=== PATIENT | female | born 1980 | race Caucasian/White ===

== ENCOUNTER → 2018-09-28 10:58 | Outpatient (CLI) | payer OTHER, MEDICAID, SELFPAY ==
[2018-09-28 11:21] LABS: Add Manual Diff / Slide Review NO; Basophils Absolute Auto 0 /uL (0-100); Basophils Percent Auto 0.5 % (0-2); Eosinophils Absolute Auto 100 /uL (0-450); Eosinophils Percent Auto 1.5 % (2-4); Hemoglobin 14.5 g/dL (12.0-16.0); Lymphocytes Absolute Auto 1800 /uL (1100-4500); Lymphocytes Percent Auto 22.9 % (25-40); Mean Corpuscular HGB Conc 34.5 % (30-36); Mean Corpuscular Hemoglobin 30.8 PG (26-34); Mean Corpuscular Volume 89.3 fL (80-100); Monocytes Absolute Auto 400 /uL (0-900); Monocytes Percent Auto 5.1 % (3-14); Neutrophils Absolute Auto 5400 /uL (1500-7000); Platelet Count 260 X10^3/uL (150-400); Red Cell Distribution Width 12.6 % (11.6-14.8); White Blood Cell Count 7.8 X10^3/uL (4.5-11.0)
[2018-09-28 11:38] LABS: HEMOLYSIS < 15 (0-50)
[2018-09-28 11:43] LABS: Alanine Aminotransferase 31 IU/L (9-52); Albumin 4.5 g/dL (3.5-5.0); Albumin Globulin Ratio 1.6 (1.0-2.8); Alkaline Phosphatase 65 U/L (38-126); Aspartate Aminotransferase 18 IU/L (14-36); Bilirubin Total 0.6 mg/dL (0.2-1.3); Blood Urea Nitrogen 12 mg/dL (7-17); Calcium 9.7 mg/dL (8.4-10.2); Carbon Dioxide 23 mmol/L (22-32); Chloride 105 mmol/L (98-107); Estimated Glomerular Filt Rate > 60.0 mL/min (>60); Globulin 2.8 g/dL (1.7-4.1); Glucose 94 mg/dL (70-100); HEMOLYSIS < 15 (0-50); Potassium 3.9 mmol/L (3.4-5.1); Sodium 140 mmol/L (137-145); Total Protein 7.3 g/dL (6.3-8.2)
[2018-09-28 12:09] LABS: Iron 112 ug/dL (37-170)
[2018-09-28 12:14] LABS: TSH w/ Reflex to FT4 2.38 uIU/mL (0.47-4.68)
[2018-09-28 12:19] LABS: Ferritin 68.6 ng/mL (6.27-137); Percent Iron Saturation 34 % (15-50); Total Iron Binding Capacity 331 ug/dL (265-497); Transferrin 264 mg/dL (206-381)
[2018-09-28 12:49] LABS: Folate 15.4 ng/mL (2.76-20.0); Vitamin B12 359 pg/mL (239-931)
== END ==
PROVIDERS: Visit Provider Nurse Practitioner Family
DX: R42 Dizziness and giddiness (principal)
CPT/HCPCS: 36415; 80053; 82607; 82728; 82746; 83540; 83550; 84443; 85025

== ENCOUNTER → 2022-03-10 14:21 | Outpatient (CLI) | payer OTHER, SELFPAY ==
[2022-03-10 18:41] LABS: Appearance Urine UA SL CLOUDY; Bilirubin Urine UA NEGATIVE (NEGATIVE); Color Urine UA YELLOW; Glucose Urine UA NEGATIVE (Negative); Ketones Urine UA NEGATIVE (NEGATIVE); Leukocyte Esterase Urine UA NEGATIVE (NEGATIVE); Nitrite Urine UA NEGATIVE (Negative); Occult Blood Urine UA NEGATIVE (Negative); Protein Urine UA NEGATIVE (Negative); Urobilinogen Urine UA 0.2 E.U./dL (0.2); pH Urine UA 7.5 (4.5-8.0)
[2022-03-10 18:42] LABS: Amorphous Sediment Urine 2+; Bacteria Urine Many (>30); Culture Indicated Urine Specimen Cultured; RBC Urine 0-1/HPF (0-5/HPF); Squamous Epithelial Cell Urine 1-5 /HPF (0-5/HPF); WBC Urine 1-5/HPF (0-5/HPF)
== END ==
PROVIDERS: PCP Nurse Practitioner; Referring Provider Nurse Practitioner; Visit Provider Nurse Practitioner
DX: R82.90 Unspecified abnormal findings in urine (principal)
CPT/HCPCS: 81001; 87077; 87086; 87186

== ENCOUNTER → 2022-06-07 16:03 | Outpatient (CLI) | payer OTHER, SELFPAY ==
[2022-06-07 16:27] LABS: Add Manual Diff / Slide Review NO; Basophils Absolute Auto 0 /uL (0-100); Basophils Percent Auto 0.6 % (0-2); Eosinophils Absolute Auto 200 /uL (0-450); Eosinophils Percent Auto 2.2 % (2-4); Hematocrit 38.8 % (36-46); Hemoglobin 13.3 g/dL (12.0-16.0); Lymphocytes Absolute Auto 2100 /uL (1100-4500); Lymphocytes Percent Auto 31.4 % (25-40); Mean Corpuscular HGB Conc 34.2 % (30-36); Mean Corpuscular Hemoglobin 31.5 PG (26-34); Mean Corpuscular Volume 92.2 fL (80-100); Monocytes Absolute Auto 500 /uL (0-900); Monocytes Percent Auto 6.7 % (3-14); Neutrophils Absolute Auto 4000 /uL (1500-7000); Neutrophils Percent Auto 59.1 % (50-75); Platelet Count 250 X10^3/uL (150-400); Red Blood Cell Count 4.21 X10^6/uL (4.0-5.2); Red Cell Distribution Width 12.7 % (11.6-14.8); White Blood Cell Count 6.7 X10^3/uL (4.5-11.0)
[2022-06-07 16:41] LABS: Alanine Aminotransferase 24 IU/L (<35); Albumin 4.4 g/dL (3.5-5.0); Albumin Globulin Ratio 1.3 (1.0-2.8); Alkaline Phosphatase 55 U/L (38-126); Aspartate Aminotransferase 25 IU/L (14-36); BUN Creatinine Ratio 21.5 (6-22); Bilirubin Total 0.3 mg/dL (0.2-1.3); Blood Urea Nitrogen 14 mg/dL (7-17); Carbon Dioxide 29 mmol/L (22-32); Chloride 100 mmol/L (98-107); Cholesterol 204 mg/dL (140-199); Estimated Glomerular Filt Rate > 60 mL/min (>60); Globulin 3.3 g/dL (1.7-4.1); Glucose 87 mg/dL (70-100); HDL Cholesterol 60 mg/dL (40-60); HEMOLYSIS < 15 (0-50); LDL Cholesterol Calculated 120 mg/dL (<100); Sodium 138 mmol/L (137-145); Total Protein 7.7 g/dL (6.3-8.2); Triglycerides 122 mg/dL (35-150)
[2022-06-07 16:58] LABS: Free T3, Triiodothyronine Free 3.36 pg/mL (2.77-5.27); Free T4, Direct Thyroxine 0.92 ng/dL (0.78-2.19)
[2022-06-07 17:11] LABS: Thyroid Stimulating Hormone 1.42 uIU/mL (0.47-4.68)
== END ==
PROVIDERS: PCP Nurse Practitioner; Referring Provider Nurse Practitioner; Visit Provider Nurse Practitioner
DX: Z00.00 Encounter for general adult medical examination without abnormal findings (principal); B96.89 Other specified bacterial agents as the cause of diseases classified elsewhere; N76.0 Acute vaginitis; R87.619 Unspecified abnormal cytological findings in specimens from cervix uteri
CPT/HCPCS: 36415; 80053; 80061; 84439; 84443; 84481; 85025; 87070; 87077; 87147; 87186; 87205

== ENCOUNTER → 2022-06-10 10:53 | Outpatient (CLI) | payer OTHER, SELFPAY ==
--- NOTE | 2022-06-10 10:54 | DI.MG.S_ITS ---
BILATERAL DIGITAL SCREENING MAMMOGRAM 3D/2D WITH CAD: 06/10/2022 CLINICAL: Routine screening. Baseline exam. No prior exams were available for comparison. There are scattered areas of fibroglandular density in both breasts (category b / 25%-50% glandular tissue). Current study was also evaluated with a Computer Aided Detection (CAD) system. No significant masses, calcifications, or other findings are seen in either breast. IMPRESSION: NEGATIVE There is no mammographic evidence of malignancy. A 1 year screening mammogram is recommended. Based on the Tyrer Cuzick model (a risk assessment model) the patient's lifetime risk is 9.9% and her 10 year risk is 1.4%. According to the ACR, ACS, and NCCN guidelines, an annual breast MRI exam along with mammogram is recommended if the patient's lifetime risk is 20% or greater. This exam was interpreted at Station ID: [id number]. NOTE: For mammograms, a report in lay terms will be sent to the patient. Approximately 15% of breast malignancies will not be visualized mammographically. In the management of a palpable breast mass, a negative mammogram must not discourage biopsy of a clinically suspicious lesion. Electronically Signed By: Javi head/naomi:06/12/2022 02:14:09 letter sent: Normal Exam ACR BI-RADS Category 1: Negative 3341F
== END ==
PROVIDERS: PCP Nurse Practitioner; Referring Provider Nurse Practitioner; Visit Provider Nurse Practitioner
DX: Z12.31 Encounter for screening mammogram for malignant neoplasm of breast (principal)
CPT/HCPCS: 77063; 77067

== ENCOUNTER 2023-01-25 19:26 | Emergency (ER) | payer OTHER, MEDICAID, SELFPAY ==
[2023-01-25 19:36] VITALS: BP 143/63; PULSE 78; RESP 18; TEMP 37.1; O2SAT 100; BMI 42.3
--- NOTE | 2023-01-25 19:39 | DI.RAD.S_ITS ---
PROCEDURE: XR CHEST 1V INDICATIONS: chest pain TECHNIQUE: One view of the chest was acquired. COMPARISON: [facility], , CHEST 2VW, 06/16/2012, 13:12. FINDINGS: Surgical changes and devices: None. Lungs and pleura: Lungs are clear. No pleural effusions or pneumothorax. Mediastinum: Mediastinal contours appear normal. Heart size is normal. Bones and chest wall: No suspicious bony lesions. Overlying soft tissues appear unremarkable. IMPRESSION: 1. No acute cardiopulmonary disease. Dictated by: Javi Patton M.D. on 01/25/2023 at 20:55 Approved by: Javi Patton M.D. on 01/25/2023 at 20:56
[2023-01-25 20:25] LABS: Add Manual Diff / Slide Review NO; Basophils Absolute Auto 0 /uL (0-100); Basophils Percent Auto 0.5 % (0-2); Eosinophils Absolute Auto 200 /uL (0-450); Eosinophils Percent Auto 2.5 % (2-4); Hematocrit 38.3 % (36-46); Hemoglobin 13.1 g/dL (12.0-16.0); Lymphocytes Absolute Auto 2200 /uL (1100-4500); Lymphocytes Percent Auto 34.3 % (25-40); Mean Corpuscular HGB Conc 34.2 % (30-36); Mean Corpuscular Hemoglobin 31.4 PG (26-34); Mean Corpuscular Volume 91.9 fL (80-100); Monocytes Absolute Auto 400 /uL (0-900); Monocytes Percent Auto 5.9 % (3-14); Neutrophils Absolute Auto 3600 /uL (1500-7000); Neutrophils Percent Auto 56.8 % (50-75); Platelet Count 278 X10^3/uL (150-400); Red Blood Cell Count 4.17 X10^6/uL (4.0-5.2); Red Cell Distribution Width 12.6 % (11.6-14.8); White Blood Cell Count 6.3 X10^3/uL (4.5-11.0)
[2023-01-25 20:29] LABS: PTT Partial Thromboplastin Tim 30 SECONDS (26-36)
[2023-01-25 20:31] LABS: Alanine Aminotransferase 28 IU/L (<35); Albumin 4.1 g/dL (3.5-5.0); Albumin Globulin Ratio 1.5 (1.0-2.8); Alkaline Phosphatase 51 U/L (38-126); Aspartate Aminotransferase 27 IU/L (14-36); BUN Creatinine Ratio 16.1 (6-22); Bilirubin Total 0.3 mg/dL (0.2-1.3); Blood Urea Nitrogen 9 mg/dL (7-17); Calcium 8.9 mg/dL (8.4-10.2); Carbon Dioxide 25 mmol/L (22-32); Chloride 103 mmol/L (98-107); Creatine Kinase 58 U/L (30-135); Estimated Glomerular Filt Rate > 60 mL/min (>60); Globulin 2.8 g/dL (1.7-4.1); Glucose 109 mg/dL (70-100); HEMOLYSIS < 15 (0-50); Lipase 194 U/L (23-300); Magnesium 1.8 mg/dL (1.6-2.3); Potassium 3.9 mmol/L (3.4-5.1); Sodium 137 mmol/L (137-145); Total Protein 6.9 g/dL (6.3-8.2)
[2023-01-25 20:43] LABS: Troponin I < 0.012 ng/mL (0.01-0.034)
[2023-01-25 21:29] LABS: Thyroid Stimulating Hormone 1.34 uIU/mL (0.47-4.68)
[2023-01-25 22:43] VITALS: O2SAT 98
[2023-01-25 22:44] VITALS: BP 117/60; PULSE 59; O2SAT 100
[2023-01-25 23:00] VITALS: PULSE 62; RESP 12; O2SAT 100
[2023-01-25 23:01] VITALS: BP 93/54; PULSE 63; RESP 12; O2SAT 100
[2023-01-25 23:30] VITALS: BP 92/51; PULSE 60; RESP 16; O2SAT 100
--- NOTE | 2023-01-25 23:48 | ED.ARRPALP ---
HPI - Arrhythmia/Palpitations General Chief Complaint: Arrhythmia/Palpitations Stated Complaint: High HR Time Seen by Provider: 01/25/23 19:28 Source: patient Mode of arrival: Ambulatory History of Present Illness HPI narrative: 42-year-old female without significant chronic medical history presents with a chief complaint of episodes of palpitations and high heart rate off and on for the past few weeks. She states that she last had an episode earlier today but that has since resolved. She denies chest pain or shortness of breath. She states when it is happening her heart rate gets into the 120s and she feels a bit dizzy and lightheaded with some chest pressure but that all goes away when her heart rate improves. She denies any change in medications or diet, no use of illicit drugs or [id number] supplements. No change in sleep, exercise or diet. Related Data Allergies Allergy/AdvReac Type Severity Reaction Status Date / Time erythromycin base Allergy Unknown Unverified 06/07/22 15:27 [ERYTHROMYCIN BASE] Review of Systems Review of Systems Narrative: GENERAL: Denies chills, fatigue, malaise, fever, sweats. HEENT: Denies sinus pain, ear pain, sore throat, difficulty swallowing, dizziness. RESPIRATORY: Denies dyspnea, cough, wheezing, hemoptysis, sputum. CARDIOVASCULAR: See HPI GASTROINTESTINAL: Denies nausea, vomiting, abdominal pain, diarrhea, constipation, melena. : Denies dysuria, frequency, incontinence, hematuria, urinary retention. MUSCULOSKELETAL: denies weakness, joint pain, or bony pain SKIN: Denies rash, skin lesions, or other NEUROLOGIC: Denies weakness, headache, numbness, change in speech, confusion, seizures, incoordination. PSYCHIATRIC: No concerning psychosocial issues. 12 point review of systems is negative except for those stated above Patient History Medical History Abnormal Pap smear of cervix (~2016) Anxiety (~2008) Depression with anxiety Insomnia Surgical History Anesthesia History of dental surgery (~1995) Family History Mother Mental health problem Sister Mental health problem Grandmother Diabetes mellitus History of heart disease Stroke Social History Smoking Status: Never smoker second hand exposure: No alcohol intake: current (Rare, couple times a year) substance use type: marijuana (smoke, every night) Smoking Status: Never smoker alcohol intake frequency: holidays/special occasions only Substance Use Type: marijuana Exam Narrative Exam Narrative: GENERAL: [42] year old patient appears stated age. Well-developed patient, in mild distress. HEAD: Atraumatic. Normocephalic. EYES: Pupils equal round and reactive. Extraocular motions intact. No scleral icterus. No injection or drainage. ENT: Nose without bleeding, purulent drainage. Throat without erythema, tonsillar hypertrophy or exudate. Airway patent. NECK: Trachea midline. Non tender CARDIOVASCULAR: Regular rate and rhythm without murmurs, gallops, or rubs. RESPIRATORY: Clear to auscultation. Breath sounds equal bilaterally. No wheezes, rales, or rhonchi. GASTROINTESTINAL: Abdomen soft, non-tender, nondistended. EXTREMITIES: No edema or joint tenderness. BACK: Nontender without deformity or crepitance. No flank tenderness. NEURO: AOx3. SKIN: No rash or erythema of visible areas Initial Vital Signs Initial Vital Signs: Vital Signs Temperature 98.7 F 01/25/23 19:36 Pulse Rate 78 01/25/23 19:36 Respiratory Rate 18 01/25/23 19:36 Blood Pressure 143/63 H 01/25/23 19:36 Pulse Oximetry 100 01/25/23 19:36 Oxygen Delivery Method Room Air 01/25/23 19:36 Course Orders Ordered: ED Orders 01/25/23 19:39 XR chest 1V Stat EKG-12 Lead Stat 01/25/23 20:01 Complete Blood Count AUTO DIFF Stat Comprehensive Metabolic Panel Stat Lipase Stat Magnesium Stat PTT Partial Thromboplastin Bereket Stat Prothrombin Time INR Stat TSH [Thyroid Stimulating Hormone] Stat Troponin & CK Cardiac Panel Stat Discontinued Medications Aspirin (Aspirin 81 Mg Chew Tab) 324 mg PO NOW ONE Stop: 01/25/23 19:40 Last Admin: 01/25/23 23:48 Dose: Not Given Documented By: Vital Signs Vital signs: Vital Signs - 8 hr 01/25/23 19:36 01/25/23 22:43 01/25/23 22:44 Temperature 98.7 F Pulse Rate 78 59 L Respiratory Rate 18 Blood Pressure 143/63 H Pulse Oximetry 100 98 100 Oxygen Delivery Method Room Air 01/25/23 22:44 01/25/23 23:00 01/25/23 23:01 Temperature Pulse Rate 62 Respiratory Rate 12 Blood Pressure 117/60 93/54 L Pulse Oximetry 100 Oxygen Delivery Method 01/25/23 23:01 01/25/23 23:30 01/25/23 23:30 Temperature Pulse Rate 63 60 Respiratory Rate 12 16 Blood Pressure 92/51 L Pulse Oximetry 100 100 Oxygen Delivery Method 01/26/23 00:00 01/26/23 00:00 Temperature Pulse Rate 64 Respiratory Rate 14 Blood Pressure 92/59 L Pulse Oximetry 100 Oxygen Delivery Method MDM - Arrhythmia/Palpitations Lab Data 01/25/23 20:01 01/25/23 20:01 Labs: Lab Results 01/25/23 01/25/23 01/25/23 Range/Units 20:01 20:01 20:01 WBC 6.3 (4.5-11.0) X10^3/uL RBC 4.17 (4.0-5.2) X10^6/uL Hgb 13.1 (12.0-16.0) g/dL Hct 38.3 (36-46) % MCV 91.9 (80-100) fL MCH 31.4 (26-34) PG MCHC 34.2 (30-36) % RDW 12.6 (11.6-14.8) % Plt Count 278 (150-400) X10^3/uL Neut % (Auto) 56.8 (50-75) % Lymph % (Auto) 34.3 (25-40) % Mitchell % (Auto) 5.9 (3-14) % Eos % (Auto) 2.5 (2-4) % Baso % (Auto) 0.5 (0-2) % Neut # (Auto) 3600 (2775-3569) /uL Lymph # (Auto) 2200 (5620-8165) /uL Mitchell # (Auto) 400 (0-900) /uL Eos # (Auto) 200 (0-450) /uL Baso # (Auto) 0 (0-100) /uL PT 11.0 (10.1-12.7) SECONDS INR 1.0 (0.9-1.3) APTT 30 (26-36) SECONDS Sodium 137 (137-145) mmol/L Potassium 3.9 (3.4-5.1) mmol/L Chloride 103 (98-107) mmol/L Carbon Dioxide 25 (22-32) mmol/L BUN 9 (7-17) mg/dL Creatinine 0.56 (0.52-1.04) mg/dL Estimated GFR > 60 (>60) mL/min BUN/Creatinine Ratio 16.1 (6-22) Glucose 109 H (70-100) mg/dL Calcium 8.9 (8.4-10.2) mg/dL Magnesium 1.8 (1.6-2.3) mg/dL Total Bilirubin 0.3 (0.2-1.3) mg/dL AST 27 (14-36) IU/L ALT 28 (<35) IU/L Alkaline Phosphatase 51 (38-126) U/L Total Creatine Kinase 58 (30-135) U/L Troponin I < 0.012 (0.01-0.034) ng/mL Total Protein 6.9 (6.3-8.2) g/dL Albumin 4.1 (3.5-5.0) g/dL Globulin 2.8 (1.7-4.1) g/dL Albumin/Globulin Ratio 1.5 (1.0-2.8) Lipase 194 (23-300) U/L TSH (0.47-4.68) uIU/mL 01/25/23 Range/Units 20:01 WBC (4.5-11.0) X10^3/uL RBC (4.0-5.2) X10^6/uL Hgb (12.0-16.0) g/dL Hct (36-46) % MCV (80-100) fL MCH (26-34) PG MCHC (30-36) % RDW (11.6-14.8) % Plt Count (150-400) X10^3/uL Neut % (Auto) (50-75) % Lymph % (Auto) (25-40) % Mitchell % (Auto) (3-14) % Eos % (Auto) (2-4) % Baso % (Auto) (0-2) % Neut # (Auto) (9848-5945) /uL Lymph # (Auto) (3575-7867) /uL Mitchell # (Auto) (0-900) /uL Eos # (Auto) (0-450) /uL Baso # (Auto) (0-100) /uL PT (10.1-12.7) SECONDS INR (0.9-1.3) APTT (26-36) SECONDS Sodium (137-145) mmol/L Potassium (3.4-5.1) mmol/L Chloride (98-107) mmol/L Carbon Dioxide (22-32) mmol/L BUN (7-17) mg/dL Creatinine (0.52-1.04) mg/dL Estimated GFR (>60) mL/min BUN/Creatinine Ratio (6-22) Glucose (70-100) mg/dL Calcium (8.4-10.2) mg/dL Magnesium (1.6-2.3) mg/dL Total Bilirubin (0.2-1.3) mg/dL AST (14-36) IU/L ALT (<35) IU/L Alkaline Phosphatase (38-126) U/L Total Creatine Kinase (30-135) U/L Troponin I (0.01-0.034) ng/mL Total Protein (6.3-8.2) g/dL Albumin (3.5-5.0) g/dL Globulin (1.7-4.1) g/dL Albumin/Globulin Ratio (1.0-2.8) Lipase (23-300) U/L TSH 1.34 (0.47-4.68) uIU/mL MDM Narrative Medical decision making narrative: [42] year old patient presents with palpitations Multiple etiologies for patient's symptoms considered including, but not limited to: [SVT versus PACs versus electrolyte abnormality versus other] Prior Charts reviewed in our EMR Primary Historian: patient Labs reviewed and interpreted by myself: No significant abnormality requiring intervention Imaging reviewed: No acute cardiopulmonary disease Patient's history and physical exam are reassuring, she is asymptomatic for the duration and shows no tachyarrhythmias on the monitor. Electrolytes are unremarkable, no obvious contributors to her episodes of palpitations. She is appropriate for discharge, encouraged to follow closely with her primary care provider and we discussed the possibility of pursuing a Holter monitor or ZIO patch in the future. Return precautions discussed and questions answered to her apparent satisfaction Findings and discharge diagnosis discussed with patient/family followed by verbalization of understanding Return precautions discussed with patient/family whom verbalize understanding of diagnosis and plan Discharge Plan Departure Patient Disposition: Home Clinical Impression: Heart palpitations Instructions: DI for Arrhythmias Activity Restrictions/Additional Instructions: *You have been diagnosed with [ palpitations, as we discussed your history and physical exam are reassuring.] Your labs, specifically electrolytes are within normal limits as are the chemicals released by your heart if it is damage. *What to do: *Please continue to take your regular medications as directed. [ ] New medication prescriptions sent to your pharmacy: [ ] [ ] New medication written as a paper prescription [ ] No new medications given *Please follow up with your primary care provider in 2-3 days, call for an appointment. Let them know you were seen in the Emergency Department and that we ask that you be seen in follow up. We will electronically transmit a record of today's note if your PCP is in our system. It would be reasonable to talk with her about the possibility of getting set up with a traveling passenger agent as an outpatient, please consider discussing it at your upcoming appointment *Return to Emergency Department if you should have any new, worsening or concerning symptoms, such as [fever greater than 101 F, shaking chills, worsening pain, persistent vomiting or other bothersome symptoms] Referrals: Linette Quintanilla ARNP [Primary Care Provider] - Stand Alone Forms: Patient Portal/API
[2023-01-26] VITALS: BP 92/59; PULSE 64; RESP 14; O2SAT 100
== END 2023-01-26 00:09 | disposition home or self-care (01) ==
PROVIDERS: Emergency Provider Emergency Medicine; PCP Nurse Practitioner
DX: R00.2 Palpitations (principal)
CPT/HCPCS: 36415; 71045; 80053; 82550; 83690; 83735; 84443; 84484; 85025; 85610; 85730; 93005; 93010; 99284

== ENCOUNTER 2023-02-11 10:49 | Emergency (ER) | payer OTHER, MEDICAID, SELFPAY ==
[2023-02-11] VITALS (16 sets, daily range): BP systolic 95–119; BP diastolic 51–69; PULSE 63–88; RESP 12–22; TEMP 37.3; O2SAT 97–100; BMI 41.7
--- NOTE | 2023-02-11 11:03 | DI.RAD.S_ITS ---
PROCEDURE: XR CHEST 1V INDICATIONS: chest pain TECHNIQUE: One view of the chest was acquired. COMPARISON: [facility], CR, XR CHEST 1V, 01/25/2023, 20:13. FINDINGS: Surgical changes and devices: None. Lungs and pleura: Lungs are clear. No pleural effusions or pneumothorax. Mediastinum: Mediastinal contours appear normal. Heart size is normal. Bones and chest wall: No suspicious bony lesions. Overlying soft tissues appear unremarkable. IMPRESSION: No acute cardiopulmonary process. Dictated by: Alex Stover M.D. on 02/11/2023 at 11:21 Approved by: Alex Stover M.D. on 02/11/2023 at 11:21
[2023-02-11] MEDS: ASPIRIN 81 MG CHEW TAB 324 MG PO (11:09)
--- NOTE | 2023-02-11 12:04 | ED.CHESTPAIN ---
HPI - Chest Pain General Chief Complaint: Chest Pain Stated Complaint: heaviness on chest, sob Time Seen by Provider: 02/11/23 11:01 Source: patient Mode of arrival: Ambulatory History of Present Illness HPI narrative: 43-year-old female with no significant past medical history presents for chest pain, chest heaviness, shortness of breath. Patient states that she has had these symptoms intermittently for several weeks, she was evaluated in the emergency department 2 weeks ago for similar. She has a follow up appointment tomorrow and in 2 days she has a scheduled appointment for a Holter monitor. She states that the palpitations make her feel like ?after a panic attack ends?, in that her chest is heavy, she feels tired, and she feels short of breath. She can not identify what makes the symptoms come and go. Related Data Home Medications Medication Instructions Recorded Confirmed No Known Home Medications 01/31/23 01/31/23 Allergies Allergy/AdvReac Type Severity Reaction Status Date / Time erythromycin base Allergy Unknown Verified 01/31/23 09:29 [ERYTHROMYCIN BASE] Review of Systems Review of Systems Narrative: CONSTITUTIONAL- Denies: fever, chills, fatigue HEENT- Denies: sore throat, nosebleed, vision changes RESPIRATORY-reports: Shortness of breath Denies: cough, wheezing CARDIAC-reports: Chest pain, palpitations Denies: edema, orthopnea GI- Denies: abdominal pain, nausea, vomiting, constipation, diarrhea - Denies: frequency, dysuria, hematuria, flank pain MSK- Denies: extremity pain, extremity swelling, joint pain, joint swelling SKIN- Denies: rash, itching, burn, swelling NEUROLOGICAL- Denies: headache, numbness, weakness, dizziness PSYCHIATRIC- Denies: anxiety, depression, suicidal ideation, homicidal ideation Patient History Medical History Abnormal Pap smear of cervix (~2016) Anxiety (~2008) Depression with anxiety Insomnia Surgical History Anesthesia History of dental surgery (~1995) Family History Mother Mental health problem Sister Mental health problem Grandmother Diabetes mellitus History of heart disease Stroke Social History Smoking Status: Never smoker second hand exposure: No alcohol intake: current (Rare, couple times a year) substance use type: marijuana (smoke, every night) Smoking Status: Never smoker alcohol intake frequency: holidays/special occasions only Substance Use Type: marijuana Exam Initial Vital Signs Initial Vital Signs: Vital Signs Temperature 99.2 F 02/11/23 10:51 Pulse Rate 88 02/11/23 10:51 Respiratory Rate 16 02/11/23 10:51 Blood Pressure 107/69 02/11/23 10:51 Pulse Oximetry 99 02/11/23 10:51 Oxygen Delivery Method Room Air 02/11/23 10:51 Const: Awake, alert, no acute distress, nontoxic appearing Eyes: PERRL, EOMI, conjunctiva normal ENT: Atraumatic, dentition normal, mucous membranes moist Cardiac: regular rate, regular rhythm RESP: unlabored, clear bilaterally, no wheezing GI: Atraumatic, soft, nontender, nondistended, no rebound, no guarding MSK: Atraumatic, full range of motion, pulses equal Skin: Warm, Dry, intact, no rashes Neuro: AO x3, CN II-XII grossly intact, moves all extremities Psych: affect normal, mood normal, not suicidal, not homicidal Course Course Course Narrative: Well-appearing patient with recurrent intermittent chest pains. Vital signs are normal. Heart score 1 based on obesity. EKG normal sinus rhythm without ischemic findings. We will order cardiac workup and D-dimer, although PE felt to be unlikely given chronicity of symptoms Orders Ordered: ED Orders 02/11/23 11:00 Complete Blood Count AUTO DIFF Stat Comprehensive Metabolic Panel Stat D Dimer Stat Lipase Stat Magnesium Stat PTT Partial Thromboplastin Bereket Stat Prothrombin Time INR Stat Troponin & CK Cardiac Panel Stat 02/11/23 11:03 XR chest 1V Stat EKG-12 Lead Stat Discontinued Medications Aspirin (Aspirin 81 Mg Chew Tab) 324 mg PO NOW ONE Stop: 02/11/23 11:04 Last Admin: 02/11/23 11:09 Dose: 324 mg Documented By: WILNER Reevaluation(s) Reevaluation #1: Laboratory work is unremarkable. D-dimer negative. Chest x-ray reviewed, unremarkable. Patient counseled if all labs and imaging findings at bedside. She is reassured that her workup today is negative and will follow up tomorrow with her doctor as scheduled. Vital Signs Vital signs: Vital Signs - 8 hr 02/11/23 10:51 02/11/23 10:54 02/11/23 10:55 Temperature 99.2 F Pulse Rate 88 Respiratory Rate 16 Blood Pressure 107/69 107/69 Pulse Oximetry 99 97 Oxygen Delivery Method Room Air 02/11/23 10:55 02/11/23 11:00 02/11/23 11:00 Temperature Pulse Rate 83 73 Respiratory Rate Blood Pressure 119/62 Pulse Oximetry 98 98 Oxygen Delivery Method 02/11/23 11:30 02/11/23 11:31 02/11/23 11:31 Temperature Pulse Rate 71 72 Respiratory Rate 15 14 Blood Pressure 116/60 95/51 L Pulse Oximetry 100 100 Oxygen Delivery Method 02/11/23 12:00 02/11/23 12:00 02/11/23 12:02 Temperature Pulse Rate 65 67 Respiratory Rate 12 16 Blood Pressure 95/54 L Pulse Oximetry 100 100 Oxygen Delivery Method 02/11/23 12:04 02/11/23 12:04 02/11/23 12:10 Temperature Pulse Rate 63 66 Respiratory Rate 16 20 Blood Pressure 106/56 L Pulse Oximetry 100 100 Oxygen Delivery Method 02/11/23 12:10 02/11/23 12:30 02/11/23 12:30 Temperature Pulse Rate 64 Respiratory Rate 22 Blood Pressure 100/59 L 100/59 L Pulse Oximetry 100 Oxygen Delivery Method 02/11/23 12:35 02/11/23 12:35 02/11/23 12:57 Temperature Pulse Rate 66 66 Respiratory Rate 19 15 Blood Pressure 100/58 L Pulse Oximetry 100 100 Oxygen Delivery Method 02/11/23 12:57 02/11/23 13:00 02/11/23 13:01 Temperature Pulse Rate 70 69 Respiratory Rate 16 15 Blood Pressure 108/61 Pulse Oximetry 100 100 Oxygen Delivery Method 02/11/23 13:01 02/11/23 13:30 02/11/23 13:30 Temperature Pulse Rate 66 Respiratory Rate 15 Blood Pressure 109/54 L 105/57 L Pulse Oximetry 100 Oxygen Delivery Method MDM - Chest Pain Differential Diagnosis Differential diagnosis: Likely fracture of rib, pneumothorax and atypical chest pain Lab Data 02/11/23 11:00 02/11/23 11:00 Labs: Lab Results 02/11/23 02/11/23 02/11/23 Range/Units 11:00 11:00 11:00 WBC 7.1 (4.5-11.0) X10^3/uL RBC 4.27 (4.0-5.2) X10^6/uL Hgb 13.4 (12.0-16.0) g/dL Hct 38.7 (36-46) % MCV 90.5 (80-100) fL MCH 31.3 (26-34) PG MCHC 34.6 (30-36) % RDW 12.0 (11.6-14.8) % Plt Count 254 (150-400) X10^3/uL Neut % (Auto) 62.1 (50-75) % Lymph % (Auto) 27.6 (25-40) % [place]ois % (Auto) 7.3 (3-14) % Eos % (Auto) 2.5 (2-4) % Baso % (Auto) 0.5 (0-2) % Neut # (Auto) TNP Lymph # (Auto) TNP [place]ois # (Auto) TNP Eos # (Auto) TNP Baso # (Auto) TNP PT 11.6 (10.1-12.7) SECONDS INR 1.0 (0.9-1.3) APTT 31 (26-36) SECONDS D-Dimer < 250 (<500) ng/ml Sodium 137 (137-145) mmol/L Potassium 4.3 (3.4-5.1) mmol/L Chloride 104 (98-107) mmol/L Carbon Dioxide 27 (22-32) mmol/L BUN 8 (7-17) mg/dL Creatinine 0.6 (0.52-1.04) mg/dL Estimated GFR > 60 (>60) mL/min BUN/Creatinine Ratio 13.3 (6-22) Glucose 92 (70-100) mg/dL Calcium 9.3 (8.4-10.2) mg/dL Magnesium 2.0 (1.6-2.3) mg/dL Total Bilirubin 0.6 (0.2-1.3) mg/dL AST 21 (14-36) IU/L ALT 20 (<35) IU/L Alkaline Phosphatase 51 (38-126) U/L Total Creatine Kinase 37 (30-135) U/L Troponin I < 0.012 (0.01-0.034) ng/mL Total Protein 6.9 (6.3-8.2) g/dL Albumin 4.0 (3.5-5.0) g/dL Globulin 2.9 (1.7-4.1) g/dL Albumin/Globulin Ratio 1.4 (1.0-2.8) Lipase 148 (23-300) U/L ECG Data Interpretation: Normal sinus rhythm rate 74 beats per minute, normal MS interval, no T-wave inversions, no STEMI Discharge Plan Departure Patient Disposition: Home Clinical Impression: Chest pain Instructions: DI for Atypical Chest Pain Prescriptions: No Action No Known Home Medications Referrals: Linette Quintanilla ARNP [Primary Care Provider] - Stand Alone Forms: Patient Portal/API
[2023-02-11 12:27] LABS: Add Manual Diff / Slide Review NO
[2023-02-11 12:34] LABS: HEMOLYSIS < 15 (0-50)
[2023-02-11 12:40] LABS: White Blood Cell Count 7.1 X10^3/uL (4.5-11.0)
[2023-02-11 12:41] LABS: Hematocrit 38.7 % (36-46); Hemoglobin 13.4 g/dL (12.0-16.0); Mean Corpuscular Hemoglobin 31.3 PG (26-34); Mean Corpuscular Volume 90.5 fL (80-100); Red Blood Cell Count 4.27 X10^6/uL (4.0-5.2)
[2023-02-11 12:42] LABS: Lymphocytes Percent Auto 27.6 % (25-40); Mean Corpuscular HGB Conc 34.6 % (30-36); Neutrophils Percent Auto 62.1 % (50-75); Platelet Count 254 X10^3/uL (150-400)
[2023-02-11 12:43] LABS: Basophils Percent Auto 0.5 % (0-2); Eosinophils Percent Auto 2.5 % (2-4); Monocytes Percent Auto 7.3 % (3-14)
[2023-02-11 12:45] LABS: PTT Partial Thromboplastin Tim 31 SECONDS (26-36); Prothrombin Time 11.6 SECONDS (10.1-12.7)
[2023-02-11 12:46] LABS: D Dimer < 250 ng/ml (<500)
[2023-02-11 12:47] LABS: Troponin I < 0.012 ng/mL (0.01-0.034)
[2023-02-11 12:49] LABS: Chloride 104 mmol/L (98-107); Creatine Kinase 37 U/L (30-135); Potassium 4.3 mmol/L (3.4-5.1); Sodium 137 mmol/L (137-145)
[2023-02-11 12:50] LABS: BUN Creatinine Ratio 13.3 (6-22); Blood Urea Nitrogen 8 mg/dL (7-17); Carbon Dioxide 27 mmol/L (22-32); Estimated Glomerular Filt Rate > 60 mL/min (>60)
[2023-02-11 12:51] LABS: Alanine Aminotransferase 20 IU/L (<35); Aspartate Aminotransferase 21 IU/L (14-36); Bilirubin Total 0.6 mg/dL (0.2-1.3); Calcium 9.3 mg/dL (8.4-10.2); Glucose 92 mg/dL (70-100)
[2023-02-11 12:52] LABS: Albumin Globulin Ratio 1.4 (1.0-2.8); Alkaline Phosphatase 51 U/L (38-126); Globulin 2.9 g/dL (1.7-4.1); Lipase 148 U/L (23-300); Total Protein 6.9 g/dL (6.3-8.2)
== END 2023-02-11 13:43 | disposition home or self-care (01) ==
PROVIDERS: Emergency Provider Emergency Medicine; PCP Nurse Practitioner
DX: R07.9 Chest pain, unspecified (principal)
CPT/HCPCS: 36415; 71045; 80053; 82550; 83690; 83735; 84484; 85025; 85379; 85610; 85730; 93005; 99284

== ENCOUNTER → 2023-02-14 15:11 | Outpatient (CLI) | payer OTHER, MEDICAID, SELFPAY | PROVIDERS: PCP Nurse Practitioner; Referring Provider Nurse Practitioner; Visit Provider Nurse Practitioner | DX: R00.2 Palpitations (principal); R55 Syncope and collapse | CPT/HCPCS: 93246 ==

== ENCOUNTER 2023-07-26 15:37 | Emergency (ER) | payer OTHER, MEDICAID, SELFPAY ==
[2023-07-26 15:45] VITALS: BP 167/74; PULSE 85; RESP 17; TEMP 37.1; O2SAT 100; BMI 41.9
--- NOTE | 2023-07-26 15:49 | DI.US.S_ITS ---
PROCEDURE: US PELVIC COMPLETE INDICATIONS: BLEEDING TECHNIQUE: Real-time scanning was performed of the pelvic organs, with image documentation. Additional endovaginal scanning was necessary due to incomplete visualization of the adnexal and endometrial structures by transabdominal scanning. COMPARISON: None. FINDINGS: Uterus: Uterus is anteverted and normal in size at 9.0 x 4.8 x 6.7 cm. The myometrium is homogeneous. The endometrium measures 11 mm combined thickness. No intrauterine gestation sac visualized. Ovaries: The right ovary measures 1.6 x 4.2 x 1.6 cm, with a calculated ovarian volume of 5 cc. The left ovary measures 2.1 x 3.0 x 1.8 cm, with a calculated ovarian volume of 6 cc. There is a thick walled cystic lesion which appears within the left ovary measuring 1.1 x 1.1 x 0.9 centimeters. Other: No pathologic free abdominal or pelvic fluid. IMPRESSION: No intrauterine gestation sac. Thick walled cystic lesion which appears within the left ovary measuring 1.1 x 1.1 x 0.9 centimeters. Findings favor a degenerating corpus luteum over ovarian ectopic . Short-term follow-up and trending beta HCGs is recommended. We strive to produce accurate, complete, and clear reports of imaging services. To assist us in improving patient care, this report was composed using standard report templates and voice recognition software. Therefore, it may contain abnormal punctuation, insertions and/or omissions. Occasional wrong-word or sound-alike substitutions may occur. Though we review the report and make efforts to correct it, we do recommend that the report be read carefully in proper context to recognize any text inaccuracies. Dictated by: Lj Sandoval M.D. on 07/26/2023 at 16:43 Approved by: Lj Sandoval M.D. on 07/26/2023 at 16:46
--- NOTE | 2023-07-26 16:12 | ED.PREGNANCY ---
HPI - <Hyun Jacobson PA-C - Last Filed: 07/26/23 18:54> General Chief complaint: Vaginal Bleeding Stated complaint: 4 WKS PRGNT, BLEEDING AND PX Time Seen by Provider: 07/26/23 16:12 Source: patient Mode of arrival: Ambulatory History of Present Illness HPI Narrative: Patient is a 43-year-old who is approximately 5 weeks per positive home test last week, who presents for evaluation after 24 hours of intermittent vaginal bleeding, abdominal cramping and pain. The pain at its worst was 2/10. The vaginal bleeding started last night, stopped overnight and started again today. She had 1 episode of diarrhea yesterday. Denies urinary symptoms, fever, chills. Has not yet had any labs or ultrasounds. Saw PCP Linette Quintanilla today to discuss options for this . Related Data Allergies Allergy/AdvReac Type Severity Reaction Status Date / Time erythromycin base AdvReac Unknown Vomiting Verified 07/26/23 15:48 [ERYTHROMYCIN BASE] Review of Systems <DACIA Benton Last Filed: 07/26/23 18:54> Review of Systems ROS Unobtainable: All systems reviewed & are unremarkable except as noted in HPI and below Exam <DACIA Benton Last Filed: 07/26/23 18:54> Narrative Exam Narrative: GENERAL: 43 year old patient appears stated age. Well-developed patient, in no acute distress. NEURO: AOx3. HEAD: Atraumatic. Normocephalic. EYES: Pupils equal round and reactive. Extraocular motions intact. No scleral icterus. No injection or drainage. ENT: Nose without bleeding or purulent drainage. Airway patent. RESPIRATORY: No increased work of breathing GASTROINTESTINAL: Abdomen soft, non-tender, nondistended. EXTREMITIES: No edema or joint tenderness. SKIN: No rash or erythema of visible areas Initial Vital Signs Initial Vital Signs: Vital Signs Temperature 98.8 F 07/26/23 15:45 Pulse Rate 85 07/26/23 15:45 Respiratory Rate 17 07/26/23 15:45 Blood Pressure 167/74 H 07/26/23 15:45 Pulse Oximetry 100 07/26/23 15:45 Oxygen Delivery Method Room Air 07/26/23 15:45 <Pop Bedolla DO - Last Filed: 07/29/23 17:49> Initial Vital Signs Initial Vital Signs: Vital Signs Temperature 98.8 F 07/26/23 15:45 Pulse Rate 85 07/26/23 15:45 Respiratory Rate 17 07/26/23 15:45 Blood Pressure 167/74 H 07/26/23 15:45 Pulse Oximetry 100 07/26/23 15:45 Oxygen Delivery Method Room Air 07/26/23 15:45 Course <Hyun Jacobson PA-C - Last Filed: 07/26/23 18:54> Orders Ordered: ED Orders 07/26/23 15:49 US pelvic complete Stat 07/26/23 17:00 Urine Culture Stat Urine Microscopic Stat 07/26/23 17:53 ABO RH Type Stat Complete Blood Count AUTO DIFF Stat Comprehensive Metabolic Panel Stat HCG Quantitative /Beta subunit Stat Vital Signs Vital signs: Vital Signs - 8 hr 07/26/23 15:45 Temperature 98.8 F Pulse Rate 85 Respiratory Rate 17 Blood Pressure 167/74 H Pulse Oximetry 100 Oxygen Delivery Method Room Air <Pop Bedolla DO - Last Filed: 07/29/23 17:49> Orders Ordered: ED Orders 07/26/23 15:49 US pelvic complete Stat 07/26/23 17:00 Urine Culture Stat Urine Microscopic Stat 07/26/23 17:53 ABO RH Type Stat Complete Blood Count AUTO DIFF Stat Comprehensive Metabolic Panel Stat HCG Quantitative /Beta subunit Stat Vital Signs Vital signs: Vital Signs - 8 hr 07/26/23 15:45 Temperature 98.8 F Pulse Rate 85 Respiratory Rate 17 Blood Pressure 167/74 H Pulse Oximetry 100 Oxygen Delivery Method Room Air MDM - OB/Uterine Contractions <Hyun Jacobson PA-C - Last Filed: 07/26/23 18:54> Lab Data 07/26/23 17:53 07/26/23 17:53 Labs: Lab Results 07/26/23 07/26/23 Range/Units 17:00 17:53 WBC 8.4 (4.5-11.0) X10^3/uL RBC 4.37 (4.0-5.2) X10^6/uL Hgb 13.8 (12.0-16.0) g/dL Hct 39.9 (36-46) % MCV 91.2 (80-100) fL MCH 31.5 (26-34) PG MCHC 34.5 (30-36) % RDW 12.6 (11.6-14.8) % Plt Count 316 (150-400) X10^3/uL Neut % (Auto) 69.5 (50-75) % Lymph % (Auto) 22.9 L (25-40) % Loving % (Auto) 6.2 (3-14) % Eos % (Auto) 0.9 L (2-4) % Baso % (Auto) 0.5 (0-2) % Neut # (Auto) 5900 (2787-0693) /uL Lymph # (Auto) 1900 (0283-0547) /uL Loving # (Auto) 500 (0-900) /uL Eos # (Auto) 100 (0-450) /uL Baso # (Auto) 0 (0-100) /uL Sodium 138 (137-145) mmol/L Potassium 3.9 (3.4-5.1) mmol/L Chloride 107 (98-107) mmol/L Carbon Dioxide 26 (22-32) mmol/L BUN 4 L (7-17) mg/dL Creatinine 0.55 (0.52-1.04) mg/dL Estimated GFR > 60 (>60) mL/min BUN/Creatinine Ratio 7.3 (6-22) Glucose 87 (70-100) mg/dL Calcium 9.3 (8.4-10.2) mg/dL Total Bilirubin 0.9 (0.2-1.3) mg/dL AST 24 (14-36) IU/L ALT 19 (<35) IU/L Alkaline Phosphatase 59 (38-126) U/L Total Protein 7.7 (6.3-8.2) g/dL Albumin 4.5 (3.5-5.0) g/dL Globulin 3.2 (1.7-4.1) g/dL Albumin/Globulin Ratio 1.4 (1.0-2.8) HCG, Quant 84.0 mIU/mL Urine RBC 1-5/hpf (0-5/HPF) Urine WBC 1-5/hpf (0-5/HPF) Ur Squamous Epith Cells 1-5 /hpf (0-5/HPF) Urine Bacteria Few (2-10) H (None) Vol Urine Centrifuged 10ml (spun) Blood Type A Positive Urine Dip Bedside Urine Glucose Negative Bedside Urine Bilirubin - Negative Bedside Urine Ketone - Negative Urine Specific [place] 1.0 Bedside Urine Occult Blood ++ Bedside Urine pH 6.0 Bedside Urine Protein - Negative Bedside Urine Urobilinogen - Negative Bedside Urine Nitrite - Negative Bedside Urine Leukocytes - Negative Esterase Imaging Data US - OB: Radiologist's Impression: PROCEDURE: US PELVIC COMPLETE INDICATIONS: BLEEDING TECHNIQUE: Real-time scanning was performed of the pelvic organs, with image documentation. Additional endovaginal scanning was necessary due to incomplete visualization of the adnexal and endometrial structures by transabdominal scanning. COMPARISON: None. FINDINGS: Uterus: Uterus is anteverted and normal in size at 9.0 x 4.8 x 6.7 cm. The myometrium is homogeneous. The endometrium measures 11 mm combined thickness. No intrauterine gestation sac visualized. Ovaries: The right ovary measures 1.6 x 4.2 x 1.6 cm, with a calculated ovarian volume of 5 cc. The left ovary measures 2.1 x 3.0 x 1.8 cm, with a calculated ovarian volume of 6 cc. There is a thick walled cystic lesion which appears within the left ovary measuring 1.1 x 1.1 x 0.9 centimeters. Other: No pathologic free abdominal or pelvic fluid. IMPRESSION: No intrauterine gestation sac. Thick walled cystic lesion which appears within the left ovary measuring 1.1 x 1.1 x 0.9 centimeters. Findings favor a degenerating corpus luteum over ovarian ectopic . Short-term follow-up and trending beta HCGs is recommended. We strive to produce accurate, complete, and clear reports of imaging services. To assist us in improving patient care, this report was composed using standard report templates and voice recognition software. Therefore, it may contain abnormal punctuation, insertions and/or omissions. Occasional wrong-word or sound-alike substitutions may occur. Though we review the report and make efforts to correct it, we do recommend that the report be read carefully in proper context to recognize any text inaccuracies. Dictated by: Lj Sandoval M.D. on 07/26/2023 at 16:43 Approved by: Lj Sandoval M.D. on 07/26/2023 at 16:46 MDM Narrative Medical decision making narrative: Multiple etiologies for patient's symptoms considered including, but not limited to: Early bleeding, miscarriage, ectopic Ultrasound shows a thick walled cystic lesion which appears within the left ovary measuring 1.1 x 1.1 x 0.9 centimeters. Findings favor a degenerating corpus luteum over ovarian ectopic . No intrauterine gestational sac identified. UA shows blood, no signs of infection. Labs without clinically significant abnormality., serum hcg 88. Patient has been referred to OBGYN for discussion of therapeutic and sterilization. Per review of the chart notes, Dr. Henderson's team is going to reach out to her to schedule for next week. We discussed the findings from today, although not conclusive, lead me to suspect that she has had a miscarriage. Doubt ectopic based on the ultrasound findings and degree of pain. Pelvic exam deferred at this time. Advised strict return precautions for severe pain or heavy bleeding. Follow up with Dr. Henderson or PCP Linette Quintanilla for repeat serum hCG next week. I will send a note through the chart to have their team schedule this. Patient's symptoms improved over duration of stay with above-stated therapies. Findings and discharge diagnosis discussed with patient/family followed by verbalization of understanding Return precautions discussed with patient/family whom verbalize understanding of diagnosis and plan <Pop Bedolla, DO - Last Filed: 07/29/23 17:49> Lab Data Labs: Lab Results 07/26/23 07/26/23 Range/Units 17:00 17:53 WBC 8.4 (4.5-11.0) X10^3/uL RBC 4.37 (4.0-5.2) X10^6/uL Hgb 13.8 (12.0-16.0) g/dL Hct 39.9 (36-46) % MCV 91.2 (80-100) fL MCH 31.5 (26-34) PG MCHC 34.5 (30-36) % RDW 12.6 (11.6-14.8) % Plt Count 316 (150-400) X10^3/uL Neut % (Auto) 69.5 (50-75) % Lymph % (Auto) 22.9 L (25-40) % Loving % (Auto) 6.2 (3-14) % Eos % (Auto) 0.9 L (2-4) % Baso % (Auto) 0.5 (0-2) % Neut # (Auto) 5900 (7864-0454) /uL Lymph # (Auto) 1900 (0982-8077) /uL Loving # (Auto) 500 (0-900) /uL Eos # (Auto) 100 (0-450) /uL Baso # (Auto) 0 (0-100) /uL Sodium 138 (137-145) mmol/L Potassium 3.9 (3.4-5.1) mmol/L Chloride 107 (98-107) mmol/L Carbon Dioxide 26 (22-32) mmol/L BUN 4 L (7-17) mg/dL Creatinine 0.55 (0.52-1.04) mg/dL Estimated GFR > 60 (>60) mL/min BUN/Creatinine Ratio 7.3 (6-22) Glucose 87 (70-100) mg/dL Calcium 9.3 (8.4-10.2) mg/dL Total Bilirubin 0.9 (0.2-1.3) mg/dL AST 24 (14-36) IU/L ALT 19 (<35) IU/L Alkaline Phosphatase 59 (38-126) U/L Total Protein 7.7 (6.3-8.2) g/dL Albumin 4.5 (3.5-5.0) g/dL Globulin 3.2 (1.7-4.1) g/dL Albumin/Globulin Ratio 1.4 (1.0-2.8) HCG, Quant 84.0 mIU/mL Urine RBC 1-5/hpf (0-5/HPF) Urine WBC 1-5/hpf (0-5/HPF) Ur Squamous Epith Cells 1-5 /hpf (0-5/HPF) Urine Bacteria Few (2-10) H (None) Vol Urine Centrifuged 10ml (spun) Blood Type A Positive Urine Dip Bedside Urine Glucose Negative Bedside Urine Bilirubin - Negative Bedside Urine Ketone - Negative Urine Specific [place] 1.0 Bedside Urine Occult Blood ++ Bedside Urine pH 6.0 Bedside Urine Protein - Negative Bedside Urine Urobilinogen - Negative Bedside Urine Nitrite - Negative Bedside Urine Leukocytes - Negative Esterase Discharge Plan Departure Patient Disposition: Home Clinical Impression: Threatened miscarriage in early Instructions: DI for Threatened Activity Restrictions/Additional Instructions: *You have been diagnosed with threatened miscarriage in early . This means that based on the ultrasound, which did not show a gestational sac, a low blood hormone level (hcg 88, negative is less than 5, normal is usually higher), and the presence of bleeding and abdominal discomfort, makes it likely that have had a miscarriage. Sometimes, this early in we are not able to see the gestational sac on ultrasound and some pregnancies continue even with a low blood hormone level, so we are unable to conclusively say whether or not you have had a miscarriage until we repeat the lab test. The probability of ectopic is very low based on the information we have. It is necessary to have a repeat blood draw in several days to see whether or not this level is going up or down. This will help us understand if there is still a or if there is any retained tissues. There was also a likely cyst noted on your left ovary on ultrasound, which may require follow up depending on how things go. The OB doctor may also want to get an ultrasound depending on the results. I will send a message to Linette Quintanilla your PCP with the information we gather today and asked her to reach out to you regarding a plan for the blood retest. Medications are not generally required in the management of early miscarriage. You should return to the emergency department if you have very heavy bleeding, which we measure by bleeding through 1 maxi pad in 1 hour for 2 consecutive hours. If your pain worsens significantly and is very severe, please return for reassessment. If you develop any other concerning symptoms, please return for reassessment. *What to do: *Please continue to take your regular medications as directed. [ ] New medication prescriptions sent to your pharmacy: [ ] [ ] New medication written as a paper prescription [x] No new medications given *Please follow up with your primary care provider in 2-3 days, call for an appointment. Let them know you were seen in the Emergency Department and that we ask that you be seen in follow up. We will electronically transmit a record of today's note if your PCP is in our system *If you do not have a primary care provider please contact the [facility] Resource line at [phone]. They will ask some questions about your medical history and help get you set up with a doctor in the community. *Return to Emergency Department if you should have any new, worsening or concerning symptoms, such as [fever greater than 101 F, shaking chills, worsening pain, persistent vomiting or other concerning symptoms]. Referrals: Linette Quintanilla ARNP [Primary Care Provider] - Stand Alone Forms: Patient Portal/API ED Sign-out <Pop Bedolla DO - Last Filed: 07/29/23 17:49> Cosign ED Attending Cosignature Attestation: Dr Bedolla Co-Sign Statement: I was available for consultation during this patient's emergency department visit. This chart is signed by myself for administrative purposes only. I did not have direct contact with this patient during this visit. They were seen independently by the APC.
[2023-07-26 18:01] LABS: Add Manual Diff / Slide Review NO; Basophils Absolute Auto 0 /uL (0-100); Basophils Percent Auto 0.5 % (0-2); Eosinophils Absolute Auto 100 /uL (0-450); Eosinophils Percent Auto 0.9 % (2-4); Hematocrit 39.9 % (36-46); Hemoglobin 13.8 g/dL (12.0-16.0); Lymphocytes Absolute Auto 1900 /uL (1100-4500); Lymphocytes Percent Auto 22.9 % (25-40); Mean Corpuscular HGB Conc 34.5 % (30-36); Mean Corpuscular Hemoglobin 31.5 PG (26-34); Mean Corpuscular Volume 91.2 fL (80-100); Monocytes Absolute Auto 500 /uL (0-900); Monocytes Percent Auto 6.2 % (3-14); Neutrophils Absolute Auto 5900 /uL (1500-7000); Neutrophils Percent Auto 69.5 % (50-75); Platelet Count 316 X10^3/uL (150-400); Red Blood Cell Count 4.37 X10^6/uL (4.0-5.2); Red Cell Distribution Width 12.6 % (11.6-14.8); White Blood Cell Count 8.4 X10^3/uL (4.5-11.0)
[2023-07-26 18:11] LABS: Alanine Aminotransferase 19 IU/L (<35); Albumin 4.5 g/dL (3.5-5.0); Albumin Globulin Ratio 1.4 (1.0-2.8); Alkaline Phosphatase 59 U/L (38-126); Aspartate Aminotransferase 24 IU/L (14-36); BUN Creatinine Ratio 7.3 (6-22); Bilirubin Total 0.9 mg/dL (0.2-1.3); Blood Urea Nitrogen 4 mg/dL (7-17); Calcium 9.3 mg/dL (8.4-10.2); Carbon Dioxide 26 mmol/L (22-32); Chloride 107 mmol/L (98-107); Estimated Glomerular Filt Rate > 60 mL/min (>60); Globulin 3.2 g/dL (1.7-4.1); Glucose 87 mg/dL (70-100); HEMOLYSIS < 15 (0-50); Potassium 3.9 mmol/L (3.4-5.1); Sodium 138 mmol/L (137-145); Total Protein 7.7 g/dL (6.3-8.2)
[2023-07-26 18:16] LABS: RBC Urine 1-5/HPF (0-5/HPF); Urine Volume 10mL (spun); WBC Urine 1-5/HPF (0-5/HPF)
[2023-07-26 18:17] LABS: Bacteria Urine Few (2-10); Squamous Epithelial Cell Urine 1-5 /HPF (0-5/HPF)
[2023-07-26 18:51] VITALS: BP 131/57; PULSE 74; RESP 16; O2SAT 99
== END 2023-07-26 19:02 | disposition home or self-care (01) ==
PROVIDERS: Emergency Medicine; Emergency Provider Physician Assistant; PCP Nurse Practitioner
DX: O20.0 Threatened abortion (principal); Z3A.01 Less than 8 weeks gestation of pregnancy
CPT/HCPCS: 36415; 76830; 76856; 80053; 81003; 81015; 84702; 85025; 86900; 86901; 87086; 93975; 99281; 99284

== ENCOUNTER → 2023-07-30 10:41 | Outpatient (CLI) | payer OTHER, MEDICAID, SELFPAY ==
[2023-07-30 11:53] LABS: HCG Quantitative /Beta subunit 6.7 mIU/mL
== END ==
PROVIDERS: PCP Nurse Practitioner; Referring Provider Nurse Practitioner; Visit Provider Nurse Practitioner
DX: O20.0 Threatened abortion (principal)
CPT/HCPCS: 36415; 84702

== ENCOUNTER → 2023-08-01 10:25 | Outpatient (CLI) | payer OTHER, MEDICAID, SELFPAY ==
[2023-08-01 11:50] LABS: HCG Quantitative /Beta subunit < 2.4 mIU/mL
== END ==
PROVIDERS: PCP Nurse Practitioner; Referring Provider Nurse Practitioner; Visit Provider Nurse Practitioner
DX: O20.0 Threatened abortion (principal)
CPT/HCPCS: 36415; 84702

== ENCOUNTER → 2023-08-09 14:18 | Outpatient (CLI) | payer OTHER, MEDICAID, SELFPAY ==
--- NOTE | 2023-08-09 14:30 | DI.US.S_ITS ---
PROCEDURE: US PELVIC COMPLETE INDICATIONS: F/U OVARIAN CYST, SAB TECHNIQUE: Real-time scanning was performed of the pelvic organs, with image documentation. Additional endovaginal scanning was necessary due to incomplete visualization of the adnexal and endometrial structures by transabdominal scanning. COMPARISON: [facility], US, US PELVIC COMPLETE, 07/26/2023, 16:00. FINDINGS: Uterus: Uterus is anteverted and normal in size at 7.5 x 4.25 a 5.5 cm. The myometrium is homogeneous. The endometrium measures 10.1 mm combined thickness. Ovaries: The right ovary measures 1.6 x 2.4 x 1.3 cm, with a calculated ovarian volume of 2.6 cc. The left ovary measures 1.9 x 2.7 x 1.9 cm, with a calculated ovarian volume of 5.0 cc. The ovaries have a normal sonographic appearance. There is a 1.1 cm dominant follicle in the right ovary. A 1.2 x 1.2 x 1.5 cm simple cyst is noted in right ovary. Less than 12 follicles can be seen in each ovary. No adnexal masses are seen. Other: No pathologic free abdominal or pelvic fluid. IMPRESSION: 1. No findings to suggest retained products of conception. 2. The thick-walled cyst in the left ovary is no longer present. We strive to produce accurate, complete, and clear reports of imaging services. To assist us in improving patient care, this report was composed using standard report templates and voice recognition software. Therefore, it may contain abnormal punctuation, insertions and/or omissions. Occasional wrong-word or sound-alike substitutions may occur. Though we review the report and make efforts to correct it, we do recommend that the report be read carefully in proper context to recognize any text inaccuracies. Dictated by: Miguel Trotter M.D. on 08/10/2023 at 8:28 Approved by: Miguel Trotter M.D. on 08/10/2023 at 8:32
== END ==
PROVIDERS: PCP Nurse Practitioner; Referring Provider Nurse Practitioner; Visit Provider Nurse Practitioner
DX: N83.291 Other ovarian cyst, right side (principal)
CPT/HCPCS: 76830; 76856

== ENCOUNTER 2024-02-24 11:44 | Emergency (ER) | payer OTHER, MEDICAID, SELFPAY ==
[2024-02-24 11:47] VITALS: BP 116/63; PULSE 80; RESP 16; TEMP 36.9; O2SAT 100; BMI 39.6
--- NOTE | 2024-02-24 11:58 | ED.ABDPAIN ---
HPI - Abdominal Pain General Chief Complaint: Urogenital-Female Stated Complaint: 10 days late, abd pain and cramping Time Seen by Provider: 02/24/24 11:58 Source: patient Mode of arrival: Ambulatory History of Present Illness HPI narrative: Patient is a 44-year-old female no significant past medical history presents to the ED from home for evaluation of lower abdominal cramping, states that she is approximately 10 days late on her period. States that in July she did have failure of her contraceptive and did have an unplanned that did unfortunately go to a miscarriage spontaneously. She states that her pain started today and is worried that she might be . She denies any vaginal bleeding or discharge, states that it does feel like her menstrual cycle currently but is not having any bleeding therefore decided come into the ED further evaluation treatment. States that she does have an appointment with an OBGYN and primary care doctor in the next few weeks. No other systemic symptoms at this time Related Data Allergies Allergy/AdvReac Type Severity Reaction Status Date / Time erythromycin base AdvReac Unknown Vomiting Verified 02/02/24 13:35 [ERYTHROMYCIN BASE] Review of Systems Review of Systems Narrative: General: Denies fever, chills, weight loss HEENT: Denies headache, eye drainage, eye irritation, head trauma, sore throat, voice change Cardiovascular: Denies any chest pain, palpitations, shortness of breath, tachycardia Respiratory: Denies any shortness of breath, cough, wheeze, stridor GI/: Positive abdominal pain, denies nausea, vomiting, diarrhea, bright red blood per rectum, melanotic stools, urinary frequency, urinary retention, dysuria, hematuria MSK: Denies any joint pain, muscle pains, swelling Skin: Denies any rashes, lesions, discoloration Neuro: Denies any headache, lightheadedness, dizziness, fainting, weakness Psych: Denies SI/HI Patient History Medical History Insomnia Depression with anxiety Anxiety (~2008) Abnormal Pap smear of cervix (~2016) Surgical History Anesthesia History of dental surgery (~1995) Family History Mother Mental health problem Sister Mental health problem Grandmother Diabetes mellitus History of heart disease Stroke Social History Smoking Status: Never smoker second hand exposure: No alcohol intake: current (Rare, couple times a year) substance use type: marijuana (smoke, every night) Smoking Status: Never smoker alcohol intake frequency: a few times a month Substance Use Type: marijuana Exam Narrative Exam Narrative: General: Cooperative, comfortable, well-developed, not in acute distress HEENT: Normocephalic, atraumatic, PERRLA, normal sclera, eyelids normal, Neck: Active full range of motion, atraumatic Chest: Normal to inspection, negative crepitus, no overlying erythema ecchymosis Respiratory: Normal respiratory effort, not in acute respiratory distress, clear to auscultation bilaterally negative cough, wheeze, tachypnea, rhonchi, rales Cardiology: Regular rate rhythm negative gallop, murmur, rubs GI/: Normal to inspection, soft, nonrigid, no tenderness to palpation, exam deferred MSK: Full range of active range of motion of all 4 extremities, atraumatic Skin: No rashes lesions noted Neuro: Alert awake oriented x3, moves all 4 extremities spontaneously, cranial nerves intact, able to answer all questions appropriately follows commands appropriately Psych: Cooperative, negative suicidal or homicidal ideations Initial Vital Signs Initial Vital Signs: Vital Signs Temperature 98.4 F 02/24/24 11:47 Pulse Rate 80 02/24/24 11:47 Respiratory Rate 16 02/24/24 11:47 Blood Pressure 116/63 02/24/24 11:47 Pulse Oximetry 100 02/24/24 11:47 Oxygen Delivery Method Room Air 02/24/24 11:47 Course Orders Ordered: ED Orders 02/24/24 12:10 Complete Blood Count AUTO DIFF Stat Comprehensive Metabolic Panel Stat HCG Quantitative /Beta subunit Stat Lipase Stat 02/24/24 12:55 CT abdomen pelvis w con Stat Vital Signs Vital signs: Vital Signs - 8 hr 02/24/24 11:47 Temperature 98.4 F Pulse Rate 80 Respiratory Rate 16 Blood Pressure 116/63 Pulse Oximetry 100 Oxygen Delivery Method Room Air MDM - Abdominal Pain Differential Diagnosis Differential diagnosis: Likely abdominal pain, acute appendicitis, constipation, diverticulitis and other (Urinary tract infection, ) Lab Data 02/24/24 12:10 02/24/24 12:10 Labs: Lab Results 02/24/24 Range/Units 12:10 WBC 8.0 (4.5-11.0) X10^3/uL RBC 4.70 (4.0-5.2) X10^6/uL Hgb 14.6 (12.0-16.0) g/dL Hct 43.4 (36-46) % MCV 92.3 (80-100) fL MCH 31.1 (26-34) PG MCHC 33.8 (30-36) % RDW 13.0 (11.6-14.8) % Plt Count 322 (150-400) X10^3/uL Neut % (Auto) 64.6 (50-75) % Lymph % (Auto) 26.4 (25-40) % [place] % (Auto) 6.0 (3-14) % Eos % (Auto) 2.4 (2-4) % Baso % (Auto) 0.6 (0-2) % Neut # (Auto) 5200 (0247-6801) /uL Lymph # (Auto) 2100 (0292-9778) /uL [place] # (Auto) 500 (0-900) /uL Eos # (Auto) 200 (0-450) /uL Baso # (Auto) 0 (0-100) /uL Sodium 139 (137-145) mmol/L Potassium 3.8 (3.4-5.1) mmol/L Chloride 105 (98-107) mmol/L Carbon Dioxide 24 (22-32) mmol/L BUN 9 (7-17) mg/dL Creatinine 0.62 (0.52-1.04) mg/dL Estimated GFR > 60 (>60) mL/min BUN/Creatinine Ratio 14.5 (6-22) Glucose 86 (70-100) mg/dL Calcium 9.4 (8.4-10.2) mg/dL Total Bilirubin 0.9 (0.2-1.3) mg/dL AST 23 (14-36) IU/L ALT 18 (<35) IU/L Alkaline Phosphatase 63 (38-126) U/L Total Protein 7.8 (6.3-8.2) g/dL Albumin 4.6 (3.5-5.0) g/dL Globulin 3.2 (1.7-4.1) g/dL Albumin/Globulin Ratio 1.4 (1.0-2.8) Lipase 84 (23-300) U/L HCG, Quant < 2.39 mIU/mL Point of care testing: Point of Care Testing Test Results Negative Urine Dip Bedside Urine Glucose Negative Bedside Urine Bilirubin - Negative Bedside Urine Ketone - Negative Urine Specific [place] 1.015 Bedside Urine Occult Blood - Negative Bedside Urine pH 7.5 Bedside Urine Protein - Negative Bedside Urine Urobilinogen - Negative Bedside Urine Nitrite - Negative Bedside Urine Leukocytes - Negative Esterase Imaging Data CT scan - abdomen/pelvis: Radiologist's Impression: [address] [address] [address] Scan Report Signed Patient: Troy Krishna MR#: [id number] : 1980 Acct:[id number] Age/Sex: 44 / F Date of Service: 02/24/24 Loc: ED Accession Number: [id number] Procedure: CT abdomen pelvis w con Ordering Provider: Finesse Kraus D.O. PROCEDURE: CT ABDOMEN PELVIS W CON INDICATIONS: abd pain, lower TECHNIQUE: After the administration of intravenous contrast, axial sections acquired from the lung bases to the pubic symphysis. Coronal and sagittal reformats were performed. For radiation dose reduction, the following was used: automated exposure control, adjustment of mA and/or kV according to patient size. COMPARISON: None. FINDINGS: Image quality: Diagnostic. Lower Chest: No significant findings. ABDOMEN: Liver: No solid mass. Presumed subcentimeter liver cysts can be seen. Gallbladder: No radiopaque gallstones or wall thickening. Biliary ducts: No biliary dilation. Pancreas: No ductal dilation. Spleen: Size is within normal limits. Adrenal Glands: No adrenal nodules. Kidneys and Ureters: No hydronephrosis. No solid mass. No complex renal cystic lesion which requires follow up. Stomach and Bowel: A normal appendix is seen. No focal right lower quadrant inflammatory change is seen. There is mild wall thickening seen involving the descending colon and the sigmoid colon. Mild surrounding inflammatory change can be seen. Distal colonic diverticula formation can be seen. The more proximal colon is within normal limits. No dilated loops of small bowel are seen. Peritoneum: No abnormal intraperitoneal fluid. No free air. Ventral Wall: No significant ventral hernia. Abdominal Nodes: No retroperitoneal or mesenteric adenopathy by size criteria. Vessels: Aorta and inferior vena cava are normal in size. PELVIS: Pelvic Organs: The uterus appears normal for age. No adnexal masses are seen. Bladder: No bladder wall thickening, accounting for underdistention. Pelvic Nodes: No enlarged lymph nodes. Miscellaneous: No inguinal hernias are seen. Bones: No aggressive osseous abnormality. Focal L5-S1 degenerative change is seen. Milder degenerative changes are seen elsewhere. IMPRESSION: Moderate distal colonic wall thickening can be seen. Please correlate with potential infectious and inflammatory causes of colitis. No findings of perforation or abscess can be seen. Distal colonic diverticulosis is seen, yet the at amount of involved colon is broader than is normally seen in diverticulitis. Additional findings: Focal L5-S1 degenerative change Normal appendix MDM Narrative Medical decision making narrative: Patient is a 44-year-old female with no significant past medical history presents to the ED for lower abdominal pain and cramping, states that she is proximally 10 days late on her cycle but no vaginal bleeding or discharge. Is concerned that she might be due to several months ago having a spontaneous miscarriage after failure of her contraceptive. This happened appointment with OBGYN and primary care in the next few weeks. Patient lab work without any leukocytosis, patient negative urine test and negative beta hCG. Patient possibly going through perimenopause at this time. Is going to follow up with her OBGYN in an outpatient setting. CT scan without any acute abnormal findings did inform patient of her incidental findings and recommended to follow up with GI in outpatient setting. Patient verbalized understanding of this agrees to being discharged home with outpatient follow up Discharge Plan Departure Patient Disposition: Home Clinical Impression: Abdominal pain Activity Restrictions/Additional Instructions: Please follow-up with your OBGYN and GI Referrals: Linette Quintanilla ARNP [Primary Care Provider] - Stand Alone Forms: Patient Portal/API
[2024-02-24 12:17] LABS: Add Manual Diff / Slide Review NO; Basophils Absolute Auto 0 /uL (0-100); Basophils Percent Auto 0.6 % (0-2); Eosinophils Absolute Auto 200 /uL (0-450); Eosinophils Percent Auto 2.4 % (2-4); Hematocrit 43.4 % (36-46); Hemoglobin 14.6 g/dL (12.0-16.0); Lymphocytes Absolute Auto 2100 /uL (1100-4500); Lymphocytes Percent Auto 26.4 % (25-40); Mean Corpuscular HGB Conc 33.8 % (30-36); Mean Corpuscular Hemoglobin 31.1 PG (26-34); Mean Corpuscular Volume 92.3 fL (80-100); Monocytes Absolute Auto 500 /uL (0-900); Neutrophils Absolute Auto 5200 /uL (1500-7000); Neutrophils Percent Auto 64.6 % (50-75); Platelet Count 322 X10^3/uL (150-400)
[2024-02-24 12:29] LABS: Alanine Aminotransferase 18 IU/L (<35); Albumin 4.6 g/dL (3.5-5.0); Albumin Globulin Ratio 1.4 (1.0-2.8); Alkaline Phosphatase 63 U/L (38-126); Aspartate Aminotransferase 23 IU/L (14-36); BUN Creatinine Ratio 14.5 (6-22); Bilirubin Total 0.9 mg/dL (0.2-1.3); Blood Urea Nitrogen 9 mg/dL (7-17); Calcium 9.4 mg/dL (8.4-10.2); Carbon Dioxide 24 mmol/L (22-32); Chloride 105 mmol/L (98-107); Estimated Glomerular Filt Rate > 60 mL/min (>60); Globulin 3.2 g/dL (1.7-4.1); Glucose 86 mg/dL (70-100); HEMOLYSIS < 15 (0-50); Lipase 84 U/L (23-300); Potassium 3.8 mmol/L (3.4-5.1); Sodium 139 mmol/L (137-145); Total Protein 7.8 g/dL (6.3-8.2)
[2024-02-24 12:46] LABS: HCG Quantitative /Beta subunit < 2.39 mIU/mL
--- NOTE | 2024-02-24 12:55 | DI.CT.S_ITS ---
PROCEDURE: CT ABDOMEN PELVIS W CON INDICATIONS: abd pain, lower TECHNIQUE: After the administration of intravenous contrast, axial sections acquired from the lung bases to the pubic symphysis. Coronal and sagittal reformats were performed. For radiation dose reduction, the following was used: automated exposure control, adjustment of mA and/or kV according to patient size. COMPARISON: None. FINDINGS: Image quality: Diagnostic. Lower Chest: No significant findings. ABDOMEN: Liver: No solid mass. Presumed subcentimeter liver cysts can be seen. Gallbladder: No radiopaque gallstones or wall thickening. Biliary ducts: No biliary dilation. Pancreas: No ductal dilation. Spleen: Size is within normal limits. Adrenal Glands: No adrenal nodules. Kidneys and Ureters: No hydronephrosis. No solid mass. No complex renal cystic lesion which requires follow up. Stomach and Bowel: A normal appendix is seen. No focal right lower quadrant inflammatory change is seen. There is mild wall thickening seen involving the descending colon and the sigmoid colon. Mild surrounding inflammatory change can be seen. Distal colonic diverticula formation can be seen. The more proximal colon is within normal limits. No dilated loops of small bowel are seen. Peritoneum: No abnormal intraperitoneal fluid. No free air. Ventral Wall: No significant ventral hernia. Abdominal Nodes: No retroperitoneal or mesenteric adenopathy by size criteria. Vessels: Aorta and inferior vena cava are normal in size. PELVIS: Pelvic Organs: The uterus appears normal for age. No adnexal masses are seen. Bladder: No bladder wall thickening, accounting for underdistention. Pelvic Nodes: No enlarged lymph nodes. Miscellaneous: No inguinal hernias are seen. Bones: No aggressive osseous abnormality. Focal L5-S1 degenerative change is seen. Milder degenerative changes are seen elsewhere. IMPRESSION: Moderate distal colonic wall thickening can be seen. Please correlate with potential infectious and inflammatory causes of colitis. No findings of perforation or abscess can be seen. Distal colonic diverticulosis is seen, yet the at amount of involved colon is broader than is normally seen in diverticulitis. Additional findings: Focal L5-S1 degenerative change Normal appendix Dictated by: Isaiah Nicole M.D. on 02/24/2024 at 12:12 Approved by: Isaiah Nicole M.D. on 02/24/2024 at 12:15
[2024-02-24 15:12] VITALS: BP 112/68; PULSE 78; RESP 20; O2SAT 98
== END 2024-02-24 15:13 | disposition home or self-care (01) ==
PROVIDERS: Emergency Provider Student in an Organized Health Care Education/Training Program; PCP Nurse Practitioner
DX: R10.30 Lower abdominal pain, unspecified (principal)
CPT/HCPCS: 36415; 74177; 80053; 81003; 81025; 83690; 84702; 85025; 99283; 99284; Q9967

== ENCOUNTER → 2024-03-01 11:15 | Outpatient (CLI) | payer OTHER, MEDICAID, SELFPAY ==
--- NOTE | 2024-03-01 | DI.MG.S_ITS ---
BILATERAL DIGITAL SCREENING MAMMOGRAM 3D/2D WITH CAD: 03/01/2024 CLINICAL: Routine screening. Comparison is made to exam dated: 06/10/2022 mammogram - [facility]. There are scattered areas of fibroglandular density (category b / 25%-50% glandular tissue). Current study was also evaluated with a Computer Aided Detection (CAD) system. No significant masses, calcifications, or other findings are seen in either breast. There has been no significant interval change. IMPRESSION: NEGATIVE There is no mammographic evidence of malignancy. A 1 year screening mammogram is recommended. Based on the Tyrer Cuzick model (a risk assessment model) the patient's lifetime risk is 9.8% and her 10 year risk is 1.7%. According to the ACR, ACS, and NCCN guidelines, an annual breast MRI exam along with mammogram is recommended if the patient's lifetime risk is 20% or greater. This exam was interpreted at Station ID: [id number]. NOTE: For mammograms, a report in lay terms will be sent to the patient. Approximately 15% of breast malignancies will not be visualized mammographically. In the management of a palpable breast mass, a negative mammogram must not discourage biopsy of a clinically suspicious lesion. Electronically Signed By: Abdulkadir paulson/naomi:03/01/2024 13:09:57 letter sent: Normal Exam ACR BI-RADS Category 1: Negative
== END ==
PROVIDERS: PCP Student in an Organized Health Care Education/Training Program; Referring Provider Student in an Organized Health Care Education/Training Program; Visit Provider Student in an Organized Health Care Education/Training Program
DX: Z12.31 Encounter for screening mammogram for malignant neoplasm of breast (principal)
CPT/HCPCS: 77063; 77067

== ENCOUNTER → 2024-03-03 14:56 | Outpatient (CLI) | payer OTHER, MEDICAID, SELFPAY ==
[2024-03-03 16:38] LABS: Prolactin 9.7 ng/mL (3.0-18.6)
[2024-03-03 16:51] LABS: TSH w/ Reflex to FT4 1.89 uIU/mL (0.47-4.68)
== END ==
PROVIDERS: PCP Student in an Organized Health Care Education/Training Program; Referring Provider Specialist; Visit Provider Specialist
DX: N92.6 Irregular menstruation, unspecified (principal); N89.8 Other specified noninflammatory disorders of vagina
CPT/HCPCS: 36415; 84146; 84443; 87480; 87510; 87660

== ENCOUNTER 2025-02-15 12:57 | Emergency (ER) | payer OTHER, SELFPAY ==
[2025-02-15 13:03] VITALS: BP 118/58; PULSE 94; RESP 16; TEMP 36.7; O2SAT 97; BMI 39.6
[2025-02-15] MEDS: MORPHINE 4 MG/ML INJ IV (15:26)
[2025-02-15] MEDS: KETOROLAC 30 MG/ML VIAL 15 MG IV (15:27)
[2025-02-15] MEDS: ONDANSETRON 4 MG/2 ML INJ IV (15:32)
[2025-02-15 15:41] LABS: INR 1.2 (0.9-1.3); Prothrombin Time 13.1 SECONDS (9.4-12.5)
[2025-02-15 15:43] LABS: Add Manual Diff / Slide Review NO; Hematocrit 37.3 % (36-46); Hemoglobin 12.8 g/dL (12.0-16.0); Lymphocytes Absolute Auto 500 /uL (1100-4500); Mean Corpuscular HGB Conc 34.2 % (30-36); Mean Corpuscular Hemoglobin 31.1 PG (26-34); Mean Corpuscular Volume 91.1 fL (80-100); Platelet Count 236 X10^3/uL (150-400)
[2025-02-15 15:47] LABS: Acetaminophen < 10 ug/mL (10-30); Alanine Aminotransferase 21 IU/L (<35); Albumin 4.3 g/dL (3.5-5.0); Albumin Globulin Ratio 1.4 (1.0-2.8); Alkaline Phosphatase 61 U/L (38-126); Blood Urea Nitrogen 11 mg/dL (7-17); Calcium 8.8 mg/dL (8.4-10.2); Carbon Dioxide 25 mmol/L (22-32); Chloride 102 mmol/L (98-107); Estimated Glomerular Filt Rate > 60 mL/min (>60); Globulin 3.1 g/dL (1.7-4.1); Glucose 92 mg/dL (70-99); Sodium 135 mmol/L (137-145); Total Protein 7.4 g/dL (6.3-8.2)
[2025-02-15 15:52] LABS: HEMOLYSIS 55 (0-50)
[2025-02-15 15:53] LABS: Potassium 3.7 mmol/L (3.4-5.1)
[2025-02-15 16:03] VITALS: O2SAT 96
[2025-02-15 16:04] VITALS: BP 107/56; PULSE 72; RESP 16; O2SAT 100
[2025-02-15 16:30] VITALS: PULSE 75; O2SAT 100
--- NOTE | 2025-02-15 16:59 | ED.DENTAL ---
HPI - Dental/Oral General Chief complaint: Dental/Oral Stated complaint: R Side Tooth Pain Time Seen by Provider: 02/15/25 14:26 Source: patient Mode of arrival: Ambulatory History of Present Illness HPI Narrative: 45-year-old female presents with several days of worsening right mandibular molar pain. Reports that the tooth needs to be pulled and that her dentist told her that the root was too deep and needs to see OMFS. She has state insurance and having a hard time finding a surgeon. Patient endorses subjective fevers and malaise/fatigue. She has been taking Tylenol and ibuprofen frequently at home for pain which has provided temporary relief. No neck stiffness or problems with phonation or breathing Related Data Previous Rx's ?Medication ?Instructions ?Recorded medroxyprogesterone 10 mg tablet 10 mg PO DAILY Irregular menses 03/03/24 #30 tabs polyethylene glycol 3350 17 17 g PO DAILY PRN constipation 03/25/24 gram/dose oral powder #510 grams propranolol 10 mg tablet 10 mg PO BID #60 tabs 10/13/24 amoxicillin 875 mg-potassium 1 tab PO BID 10 days #20 tabs 02/15/25 clavulanate 125 mg tablet oxycodone 5 mg tablet 5 mg PO Q8H PRN pain #14 tabs 02/15/25 Allergies Allergy/AdvReac Type Severity Reaction Status Date / Time erythromycin base AdvReac Unknown Vomiting Verified 03/04/24 08:55 (ERYTHROMYCIN BASE) Review of Systems Review of Systems Narrative: Pertinent ROS obtained and negative except as stated in HPI Patient History Medical History (Updated 02/15/25 @ 17:03 by Cindy Burgos MD) Insomnia Depression with anxiety Anxiety (~2008) Abnormal Pap smear of cervix (~2016) Surgical History Anesthesia History of dental surgery (~1995) Family History Mother Mental health problem Sister Mental health problem Grandmother Diabetes mellitus History of heart disease Stroke Social History Smoking Status: Never smoker second hand exposure: No alcohol intake: current (Rare, couple times a year) substance use type: marijuana (smoke, every night) Smoking Status: Never smoker alcohol intake frequency: a few times a month Exam Initial Vital Signs Initial Vital Signs: Vital Signs Temperature 98.0 F 02/15/25 13:03 Pulse Rate 94 H 02/15/25 13:03 Respiratory Rate 16 02/15/25 13:03 Blood Pressure 118/58 L 02/15/25 13:03 Pulse Oximetry 97 02/15/25 13:03 Oxygen Delivery Method Room Air 02/15/25 13:03 Constitutional: Well appearing, no acute distress Head: NCAT ENT: There are dental caries noted. Prior crowns noted. There is tenderness to palpation of the right mandibular molar. No facial swelling or tenderness along the jaw. No gingival swelling or abscess noted. No sub lingual edema/induration Cardiovascular: RRR, no murmur or rub Pulmonary: CTA bilaterally, no respiratory distress Abdominal: soft, non-tender no right upper quadrant tenderness Extremities: No LE edema Skin: warm and dry, no diaphoresis Neurological: Alert and oriented x3 Course Orders Ordered: Discontinued Medications Amoxicillin/Clavulanate Potassium (Amoxicillin/Clav 875/125 Mg) 1 tab PO NOW ONE Stop: 02/15/25 16:46 Last Admin: 02/15/25 17:12 Dose: 1 tab Documented By: TC Ketorolac Tromethamine (Ketorolac 30 Mg/Ml Vial) 15 mg IV NOW ONE Stop: 02/15/25 14:54 Last Admin: 02/15/25 15:27 Dose: 15 mg Documented By: AI Morphine Sulfate (Morphine 4 Mg/Ml Inj) 4 mg IV NOW ONE Stop: 02/15/25 14:54 Last Admin: 02/15/25 15:26 Dose: 4 mg Documented By: AI Ondansetron HCl (Ondansetron 4 Mg/2 Ml Inj) 4 mg IV NOW ONE Stop: 02/15/25 15:31 Last Admin: 02/15/25 15:32 Dose: 4 mg Documented By: AI Vital Signs Vital signs: Vital Signs - 8 hr 02/15/25 13:03 02/15/25 16:03 02/15/25 16:04 Temperature 98.0 F Pulse Rate 94 H Respiratory Rate 16 Blood Pressure 118/58 L 107/56 L Pulse Oximetry 97 96 Oxygen Delivery Method Room Air Room Air 02/15/25 16:04 02/15/25 16:30 Temperature Pulse Rate 72 75 Respiratory Rate 16 Blood Pressure Pulse Oximetry 100 100 Oxygen Delivery Method MDM - Dental/Oral Lab Data 02/15/25 15:26 02/15/25 15:26 Labs: Lab Results 02/15/25 Range/Units 15:26 WBC 18.7 H (4.5-11.0) X10^3/uL RBC 4.10 (4.0-5.2) X10^6/uL Hgb 12.8 (12.0-16.0) g/dL Hct 37.3 (36-46) % MCV 91.1 (80-100) fL MCH 31.1 (26-34) PG MCHC 34.2 (30-36) % RDW 13.0 (11.6-14.8) % Plt Count 236 (150-400) X10^3/uL Neut % (Auto) 94.1 H (50-75) % Lymph % (Auto) 2.4 L (25-40) % [place] % (Auto) 3.4 (3-14) % Eos % (Auto) 0.0 L (2-4) % Baso % (Auto) 0.1 (0-2) % Neut # (Auto) 35886 H (1915-2192) /uL Lymph # (Auto) 500 L (9973-0681) /uL [place] # (Auto) 600 (0-900) /uL Eos # (Auto) 0 (0-450) /uL Baso # (Auto) 0 (0-100) /uL PT 13.1 H (9.4-12.5) SECONDS INR 1.2 (0.9-1.3) Sodium 135 L (137-145) mmol/L Potassium 3.7 (3.4-5.1) mmol/L Chloride 102 (98-107) mmol/L Carbon Dioxide 25 (22-32) mmol/L BUN 11 (7-17) mg/dL Creatinine 0.67 (0.52-1.04) mg/dL Estimated GFR > 60 (>60) mL/min BUN/Creatinine Ratio 16.4 (6-22) Glucose 92 (70-99) mg/dL Calcium 8.8 (8.4-10.2) mg/dL Total Bilirubin 0.7 (0.2-1.3) mg/dL AST 29 (14-36) IU/L ALT 21 (<35) IU/L Alkaline Phosphatase 61 (38-126) U/L Total Protein 7.4 (6.3-8.2) g/dL Albumin 4.3 (3.5-5.0) g/dL Globulin 3.1 (1.7-4.1) g/dL Albumin/Globulin Ratio 1.4 (1.0-2.8) Acetaminophen < 10 (10-30) ug/mL MDM Narrative Medical decision making narrative: 45 yo female presents with acute on chronic R mandibular molar pain related to dental caries. She has been referred to [facility] by dentist for extraction of tooth. Here in ED pt is non toxic appearing, normal phonation, normal ROM neck without any external swelling. No intraoral abscess noted that would be amenable to I&D and no evidence of kam's angina. No fever or tenderness over the face. Offered IV narcotic along with toradol which does significantly improve pain such that pt is able to sleep. Laboratories benign aside from leukocytosis. Pt offered rx for antibiotic and prn narcotic. She is working on establishing with [facility]. Return precautions discussed and provided prior to discharge. Discharge Plan Departure Patient Disposition: Home Clinical Impression: Pain, dental Instructions: DI for Dental Pain Activity Restrictions/Additional Instructions: Please follow up with oral maxillofacial surgery for definitive care. In the meantime you can take antibiotic as I had prescribed to try to cool down in the inflammation of the nerve root. For pain please take ibuprofen 800 mg every 8 hours, acetaminophen 1000 mg every 6 hours. You may use narcotic as prescribed for severe or breakthrough pain. I have prescribed some narcotic pain medication. Please remember that narcotic pain medication is addictive, lethal in overdose, causes constipation and sedation. If you use this medication consistently over time, your body will become habituated to it and you will ultimately need increasing doses. In the long run, this medication will actually increase your sensitivity to pain and it does not actually address the underlying cause of pain, it only masks at temporarily. You must not drive or perform other risky behavior while on this medication. You must not combine it with alcohol or other drugs. Please only take the minimum amount needed to treat your pain. Return to the emergency department for severe worsening pain or new symptoms such as oral or facial swelling, disturbances in speech or vision, difficulty swallowing or breathing, neck stiffness, or other symptoms that are concerning to you Prescriptions: New amoxicillin-pot clavulanate 875-125 mg tablet 1 tab PO BID 10 Days Qty: 20 0RF oxycodone 5 mg tablet 5 mg PO Q8H PRN (Reason: pain) Qty: 14 0RF No Action polyethylene glycol 3350 17 gram/dose powder 17 g PO DAILY PRN (Reason: constipation) Qty: 510 0RF propranolol 10 mg tablet 10 mg PO BID Qty: 60 3RF medroxyprogesterone 10 mg tablet 10 mg PO DAILY Qty: 30 0RF Rx Instructions: Take 1 a day for 10 days each month starting on the 5th of the month Referrals: Lowell Harmon DMD [Physician, Dentistry] Aura Younger MD [Primary Care Provider, Family Practice] Stand Alone Forms: Patient Portal/API
[2025-02-15] MEDS: AMOXICILLIN/CLAV 875/125 MG 1 TAB PO (17:12)
[2025-02-15 17:18] VITALS: BP 120/56; PULSE 75; RESP 16; TEMP 37.2; O2SAT 100
== END 2025-02-15 17:19 | disposition home or self-care (01) ==
PROVIDERS: Emergency Provider Student in an Organized Health Care Education/Training Program; PCP Student in an Organized Health Care Education/Training Program
DX: K08.89 Other specified disorders of teeth and supporting structures (principal)
CPT/HCPCS: 36415; 80053; 80329; 85025; 85610; 96374; 96375; 99284; G0480; J1885; J2272; J2405

== ENCOUNTER → 2025-02-19 14:31 | Outpatient (CLI) | payer OTHER, SELFPAY ==
[2025-02-19 14:58] LABS: Add Manual Diff / Slide Review NO; Hematocrit 38.5 % (36-46); Hemoglobin 13.4 g/dL (12.0-16.0); Lymphocytes Absolute Auto 1800 /uL (1100-4500); Mean Corpuscular HGB Conc 34.8 % (30-36); Mean Corpuscular Hemoglobin 31.6 PG (26-34); Mean Corpuscular Volume 90.9 fL (80-100); Platelet Count 289 X10^3/uL (150-400)
== END ==
PROVIDERS: PCP Student in an Organized Health Care Education/Training Program; Referring Provider Student in an Organized Health Care Education/Training Program; Visit Provider Student in an Organized Health Care Education/Training Program
DX: B99.9 Unspecified infectious disease (principal); D72.829 Elevated white blood cell count, unspecified
CPT/HCPCS: 36415; 85025